=== PATIENT | female | born 1980 ===

== ENCOUNTER 2018-04-30 08:12 | Emergency (ER) | payer OTHER ==
[~2018-04-30] VITALS: Ht 170.2 cm; Wt 76.2 kg
== END 2018-04-30 23:13 | disposition home or self-care (01) ==
LOC: ER 08:12
DX: O26.891 Other specified pregnancy related conditions, first trimester (principal); R10.13 Epigastric pain; Z34.81 Encounter for supervision of other normal pregnancy, first trimester

== ENCOUNTER 2018-06-06 20:26 | Emergency (ER) | payer OTHER ==
[~2018-06-06] VITALS: Ht 167.6 cm; Wt 78.0 kg
== END 2018-06-07 02:00 | disposition home or self-care (01) ==
LOC: ER 20:26
DX: O26.892 Other specified pregnancy related conditions, second trimester (principal); J45.998 Other asthma; Z34.82 Encounter for supervision of other normal pregnancy, second trimester

== ENCOUNTER 2018-07-20 11:50 | Outpatient (CLI) | payer OTHER | END 2018-07-20 12:40 | disposition home or self-care (01) | LOC: NST 11:50 | DX: O26.892 Other specified pregnancy related conditions, second trimester (principal); R10.2 Pelvic and perineal pain; Z34.83 Encounter for supervision of other normal pregnancy, third trimester ==

== ENCOUNTER → 2018-09-13 | Outpatient (CLI) | payer OTHER | END | disposition home or self-care (01) | LOC: NST 12:16 | DX: Z34.83 Encounter for supervision of other normal pregnancy, third trimester (principal) ==

== ENCOUNTER 2018-10-07 15:17 | Outpatient (CLI) | payer OTHER | END 2018-10-07 18:22 | disposition home or self-care (01) | LOC: NST 15:17 | DX: Z34.83 Encounter for supervision of other normal pregnancy, third trimester (principal) ==